=== PATIENT | female | born 1960 | race Caucasian/White ===

== ENCOUNTER 2021-01-19 11:00 | Outpatient (RCR) | payer OTHER ==
[2021-01-02 14:44] VITALS: BP 147/89; PULSE 96; TEMP 99.2
[2021-01-09 14:05] VITALS: BP 140/78; PULSE 89; TEMP 98.3
[~2021-01-19] VITALS: Ht 162.6 cm; Wt 156.3 kg
[~2021-01-19 11:00] MED LIST changes: -ALEVE 220MG220 MG PO; -AMOXICILLIN 8751 TAB PO; -ASPIRIN E.C. 8181 MG PO; -XANAX 0.5MG0.5 MG PO
[2021-01-19] MEDS ORDERED: AMOXICILLIN 8751 TAB PO (11:24)
[2021-01-19 11:27] VITALS: BP 122/79; PULSE 100; TEMP 99.3
== END 2021-01-19 18:21 | disposition home or self-care (01) ==
LOC: EUO 11:00
DX: D50.9 Iron deficiency anemia, unspecified (principal)
CPT/HCPCS: J1756

== ENCOUNTER → 2021-01-19 | Outpatient (CLI) | payer OTHER ==
[~2021-01-19] MED LIST: ALEVE 220MG220 MG PO; AMOXICILLIN 8751 TAB PO; ASPIRIN E.C. 8181 MG PO; FLEXERIL 1010 MG/TAB PO; GLUCOPHAGE XR500 M1 PO; LEXAPRO20 MG PO; PROVENTIL0.09 MG/A1 IH; RITALIN 20M20 MG/TAB PO; SYNTHROID 0.10.15 MG PO; XANAX 0.5MG0.5 MG PO
== END ==
LOC: COL.LAB 08:00 → SDCO 01-24 11:30 → COL.LAB 02-28 08:00 → SDCO 02-28 08:00 → EDSTATUS 02-28 11:30
DX: Z12.11 Encounter for screening for malignant neoplasm of colon (principal); Z20.822 Contact with and (suspected) exposure to COVID-19

== ENCOUNTER 2021-03-30 09:59 | Day surgery (SDC) | payer OTHER ==
[~2021-03-30] VITALS: Ht 162.6 cm; Wt 156.6 kg
[~2021-03-30 09:59] MED LIST changes: +AMOXICILLIN 8751 TAB PO
[2021-03-30] MEDS ORDERED: XANAX 0.5MG0.5 MG PO (11:22)
[2021-03-30 11:23] VITALS: BP 133/94; PULSE 95; TEMP 98.4
[2021-03-30] MEDS ORDERED: ASPIRIN E.C. 8181 MG PO (11:25)
[2021-03-30] MEDS ORDERED: ALEVE 220MG220 MG PO (11:25)
[2021-03-30 12:45] VITALS: BP 122/88; PULSE 89; TEMP 97.8
--- NOTE | 2021-03-30 12:45 | NUR ---
Pt returned to recliner in bay from cart post procedure. A&O. VSS-see flowsheet. Given cranberry juice per request. Spouse in room upon return. Warm blanket given and call light in reach.
[2021-03-30 13:00] VITALS: BP 133/84; PULSE 78
[2021-03-30 13:15] VITALS: BP 135/90; PULSE 76
--- NOTE | 2021-03-30 13:27 | NUR ---
Pt tolerated juice. Dr Toussaint visited with pt and spouse post procedure. IV removed, pressure dressing applied. Pt dressing independently.
--- NOTE | 2021-03-30 13:28 | NUR ---
Discharge teaching completed, pt verbalized understanding.
--- NOTE | 2021-03-30 13:36 | NUR ---
Pt taken via wheelchair to dc home via private vehicle with to drive.
== END 2021-03-30 13:36 | disposition home or self-care (01) ==
LOC: SDCO 09:59
DX: Z12.11 Encounter for screening for malignant neoplasm of colon (principal); K63.5 Polyp of colon; K63.89 Other specified diseases of intestine; K57.30 Diverticulosis of large intestine without perforation or abscess without bleeding; J45.909 Unspecified asthma, uncomplicated; G47.33 Obstructive sleep apnea (adult) (pediatric); E66.9 Obesity, unspecified; E11.9 Type 2 diabetes mellitus without complications; E03.9 Hypothyroidism, unspecified; Z79.899 Other long term (current) drug therapy; Z79.890 Hormone replacement therapy; Z87.891 Personal history of nicotine dependence; Z99.89 Dependence on other enabling machines and devices; Z98.890 Other specified postprocedural states
CPT/HCPCS: J2704; J7030

== ENCOUNTER 2021-07-05 13:05 | Outpatient (RCR) | payer OTHER ==
[~2021-07-05 13:05] MED LIST changes: +ALEVE 220MG220 MG PO; +ASPIRIN E.C. 8181 MG PO; +XANAX 0.5MG0.5 MG PO
== END 2021-07-12 | disposition home or self-care (01) ==
LOC: WSPT
DX: M25.562 Pain in left knee (principal)

== ENCOUNTER 2021-08-10 13:30 | Outpatient (RCR) | payer OTHER | END 2021-08-11 | LOC: WSPT | DX: M25.562 Pain in left knee (principal) ==

== ENCOUNTER 2021-08-28 11:15 | Outpatient (RCR) | payer OTHER | END 2021-09-11 | disposition home or self-care (01) | LOC: WSPT | DX: M25.562 Pain in left knee (principal) ==

== ENCOUNTER → 2022-08-09 | Outpatient (CLI) | payer OTHER | LOC: MC.RAD 13:43 | DX: Z12.31 Encounter for screening mammogram for malignant neoplasm of breast (principal) ==